=== PATIENT | female | born 1960 | race Caucasian/White ===

== ENCOUNTER 2018-11-08 17:41 | Inpatient (IN) | payer BC ==
[~2018-11-08] VITALS: Ht 154.9 cm; Wt 96.5 kg
[~2018-11-08 17:41] MED LIST: ALPR-624 PO; ASPI-1 PO; ATOR20TA66 PO; CLOP75TA35 PO; METO1TAB25 PO; OMEP-84 PO
[2018-11-08] MEDS ORDERED: aspirin 325mg tablet PO ONE (18:15)
[2018-11-08 18:50] LABS: BASOPHILS % (AUTO) 0.7 % (0-1); EOSINOPHILS # (AUTO) 0.2 X10'3 (0-0.9); EOSINOPHILS % (AUTO) 3.2 % (0-6); HEMATOCRIT 41.4 % (35.0-45.0); HEMOGLOBIN 13.7 g/dl (12.0-16.0); LYMPHOCYTES # (AUTO) 1.6 X10'3 (1.1-4.8); LYMPHOCYTES % (AUTO) 26.5 % (21-51); MEAN CORPUSCULAR HEMOGLOBIN 28.9 PG (27.0-31.0); MEAN CORPUSCULAR HGB CONC 33.1 g/dL (33.0-36.5); MEAN CORPUSCULAR VOLUME 87.2 FL (78-98); MEAN PLATELET VOLUME 7.7 FL (7.4-10.4); MONOCYTES # (AUTO) 0.6 X10'3 (0-0.9); MONOCYTES % (AUTO) 9.8 % (2-12); NEUTROPHILS # (AUTO) 3.7 X10'3 (1.8-7.7); NEUTROPHILS % (AUTO) 59.8 % (42-75); PLATELET COUNT 234 X10'3 (140-440); RED BLOOD COUNT 4.75 X10'6 (4.20-5.60); RED CELL DISTRIBUTION WIDTH 13.9 % (11.5-14.5); WHITE BLOOD COUNT 6.1 X10'3 (4.5-11.0)
[2018-11-08 19:00] LABS: PARTIAL THROMBOPLASTIN TIME 27 SECONDS (22-32)
[2018-11-08 19:10] LABS: ALANINE AMINOTRANSFERASE 36 U/L (12-78); ALBUMIN 3.2 G/DL (3.4-5.0); ALKALINE PHOSPHATASE 65 IU/L (46-116); ANION GAP 7 (8-16); ASPARTATE AMINO TRANSFERASE 26 U/L (10-37); BILIRUBIN,TOTAL 0.4 MG/DL (0.1-1.0); BLOOD UREA NITROGEN 11 MG/DL (7-18); BUN/CREATININE RATIO 12.8 (6.6-38.0); CALCIUM 8.7 MG/DL (8.5-10.1); CHLORIDE 107 MMOL/L (99-107); CREATININE 0.86 MG/DL (0.40-0.90); GLUCOSE 118 MG/DL (70-104); POTASSIUM 3.5 MMOL/L (3.5-5.1); SODIUM 143 MMOL/L (135-145); TOTAL CARBON DIOXIDE 28.7 MMOL/L (24-32); TOTAL PROTEIN 6.3 G/DL (6.4-8.2); eGFR 67 ML/MIN
[2018-11-08] MEDS ORDERED: enoxaparin 100mg/ml syringe SUBCUT ONE (19:20)
[2018-11-08] MEDS ORDERED: OMEP40CA37 PO (19:39)
[2018-11-08] MEDS ORDERED: CLOP75TA15 PO (19:39)
[2018-11-08] MEDS ORDERED: ATOR40TA PO (19:39)
[2018-11-08] MEDS ORDERED: METO50TA7 PO (19:39)
[2018-11-08] MEDS ORDERED: acetaminophen 325mg tablet PO PRN ×2 (20:25)
[2018-11-08] MEDS ORDERED: magnesium 4gm in 100ml NS 100 ML IV PRN (20:25)
[2018-11-08] MEDS ORDERED: magnesium Cl slow-release 64mg tablet PO PRN (20:25)
[2018-11-08] MEDS ORDERED: potassium Cl 40MEQ/NS 500ml 500 ML IV PRN ×2 (20:25)
[2018-11-08] MEDS ORDERED: nitroGLYCERIN 0.4mg SUBLingual tab SL PRN (20:25)
[2018-11-08] MEDS ORDERED: ondansetron/PF 4mg/2ml inj IV PRN (20:25)
[2018-11-08] MEDS ORDERED: mag hydrox/Alum hydrox/simeth 30ml oral suspension PO PRN (20:25)
[2018-11-08] MEDS ORDERED: potassium Cl 20 mEq SR tablet PO PRN ×2 (20:25)
[2018-11-08] MEDS ORDERED: magnesium hydroxide 30ml (MOM) UD suspension PO PRN (20:25)
[2018-11-08] MEDS ORDERED: magnesium 2GM in 50ml NS 50 ML IV PRN (20:25)
--- NOTE | 2018-11-08 21:15 | NUR ---
Report received from Artur FERGUSON in the ER on the pt.
--- NOTE | 2018-11-08 21:30 | NUR ---
Pt admitted to room 308. Placed on bedside monitor, VSS, and no s/s of distress. Pt denies any current or recent CP since this morning. Educated her that she will be NPO after midnight pending further tests. Chest pain protocol being done for pt. She denied other needs and stated understanding to her POC. Call light in reach.
[2018-11-08 22:00] VITALS: BP 147/75
[2018-11-09] VITALS (13 sets, daily range): BP systolic 119–197; BP diastolic 63–84
[2018-11-09] MEDS ORDERED: regadenoson 0.4mg/5ml syringe IV ONE (02:20)
[2018-11-09] MEDS ORDERED: aminophylline 250mg/10ml inj. IV PRN (02:20)
[2018-11-09] MEDS ORDERED: nitroGLYCERIN 0.4mg SUBLingual tab SL PRN (02:20)
[2018-11-09] MEDS ORDERED: metoprolol tartrate 1mg/ml inj IV PRN (02:20)
--- NOTE | 2018-11-09 06:36 | NUR ---
Patient in room MED 308. I have received report from Chantal FERGUSON and had the opportunity to ask questions and assume patient care.
[2018-11-09 07:00] LABS: BASOPHILS % (AUTO) 0.7 % (0-1); EOSINOPHILS # (AUTO) 0.2 X10'3 (0-0.9); EOSINOPHILS % (AUTO) 4.2 % (0-6); HEMATOCRIT 40.3 % (35.0-45.0); HEMOGLOBIN 13.4 g/dl (12.0-16.0); LYMPHOCYTES # (AUTO) 1.3 X10'3 (1.1-4.8); LYMPHOCYTES % (AUTO) 30.2 % (21-51); MEAN CORPUSCULAR HGB CONC 33.2 g/dL (33.0-36.5); MEAN CORPUSCULAR VOLUME 87.4 FL (78-98); MEAN PLATELET VOLUME 7.8 FL (7.4-10.4); MONOCYTES # (AUTO) 0.4 X10'3 (0-0.9); MONOCYTES % (AUTO) 8.2 % (2-12); NEUTROPHILS # (AUTO) 2.5 X10'3 (1.8-7.7); NEUTROPHILS % (AUTO) 56.7 % (42-75); PLATELET COUNT 207 X10'3 (140-440); RED BLOOD COUNT 4.61 X10'6 (4.20-5.60); WHITE BLOOD COUNT 4.5 X10'3 (4.5-11.0)
[2018-11-09 07:16] LABS: ANION GAP 8 (8-16); BLOOD UREA NITROGEN 13 MG/DL (7-18); BUN/CREATININE RATIO 15.5 (6.6-38.0); CALCIUM 8.9 MG/DL (8.5-10.1); CHLORIDE 108 MMOL/L (99-107); CREATININE 0.84 MG/DL (0.40-0.90); GLUCOSE 112 MG/DL (70-104); MAGNESIUM 1.8 MG/DL (1.5-2.4); POTASSIUM 3.6 MMOL/L (3.5-5.1); SODIUM 145 MMOL/L (135-145); TOTAL CARBON DIOXIDE 28.8 MMOL/L (24-32); eGFR 69 ML/MIN
--- NOTE | 2018-11-09 07:27 | NUR ---
Paged correctional maintenance technician for 12 hour EKG.
[2018-11-09] MEDS: pantoprazole 40mg Tablet.DR PO SCH (08:00)
[2018-11-09] MEDS ORDERED: enoxaparin 100mg/ml syringe SUBCUT SCH (08:00)
[2018-11-09] MEDS ORDERED: K and/or MAG REPLACEMENT MC SCH (08:00)
[2018-11-09] MEDS ORDERED: clopidogrel 75mg tablet PO SCH (08:00)
[2018-11-09] MEDS: ALPRAZolam 0.5mg tablet PO SCH (08:01)
[2018-11-09] MEDS: atorvastatin 20mg tablet PO SCH (08:01)
[2018-11-09] MEDS: metoprolol succinate 25mg (24-HOUR) SR. Tablet PO SCH (08:01)
[2018-11-09] MEDS ORDERED: aspirin 81mg tablet.DR PO SCH (08:45)
[2018-11-09] MEDS ORDERED: iohexol 350MG/ML 100ml bottle IV ONE ×4 (09:00→16:09)
[2018-11-09 09:19] LABS: D-DIMER 0.32 MG/L FEU (0-0.50)
--- NOTE | 2018-11-09 12:56 | NUR ---
Spoke with pt. regarding HTN (170's/70's), claims to run high at home 150's/70's. Consulted with Daly FERGUSON MD rounding soon and plans to inform him of HTN at that time. Addendum: 11/09/18 at 1258 by Bernadette WISEMAN-NU Amended: Links added.
--- NOTE | 2018-11-09 13:08 | NUR ---
Paged Dr Moore regarding patient's blood pressure and NPO status; PAGER ID: [phone] MESSAGE: Daly on [facility] at [phone] re Kristyn Hillman in 308. She is hypertensive, currently 170s/80s. Do you want to add a PRN? Also, does she still need to be NPO or will she have more tests today? Thanks
[2018-11-09] MEDS ORDERED: hydrALAZINE 20mg/ml inj. IV SCH (14:00)
[2018-11-09] MEDS ORDERED: hydrALAZINE 20mg/ml inj. IV PRN (14:20)
[2018-11-09] MEDS ORDERED: LIDOcaine 1% (10mg/ml)w/preservative injection 20ml MDV ONE (14:27)
[2018-11-09] MEDS ORDERED: nitroGLYCERIN-Tridil 50MG/D5W 250 ML IV ONE (14:27)
[2018-11-09] MEDS ORDERED: heparin 1,000unit/ml 10ml vial 10 ML ONE (14:27)
[2018-11-09] MEDS ORDERED: verapamil 2.5 mg/ml inj IV ONE (14:27)
[2018-11-09] MEDS ORDERED: iohexol 350 MG/ML 50ML vial IV ONE (14:48)
--- NOTE | 2018-11-09 15:02 | NUR ---
Patient picked up and taken to [facility].
[2018-11-09] MEDS ORDERED: midazolam 2 mg/2 ml injection ONE (15:11)
[2018-11-09] MEDS ORDERED: fentaNYL/PF 50MCG/1 ML 2ML syringe ONE ×2 (15:11→16:27)
[2018-11-09] MEDS ORDERED: heparin 25,000 UNIT/250ml bag 250 ML IV ONE (16:10)
[2018-11-09] MEDS ORDERED: clopidogrel 300mg tablet ONE (16:36)
[2018-11-09] MEDS ORDERED: hydrALAZINE 20mg/ml inj. IV ONE (16:48)
--- NOTE | 2018-11-09 17:00 | NUR ---
1700 Received report from Dorys in optical laboratory manager. Pt here at 1720 sheath site intact, transduced , patient alert and oriented, restless, c/o headache, denies chest pain. pulses palpable. Radial cuff in place from radial artery approach, site clear. 1740 received report from Daly in [facility] no new information received.
--- NOTE | 2018-11-09 17:38 | NUR ---
Problems reprioritized. Patient report given, questions answered & plan of care reviewed with David FERGUSON.
[2018-11-09] MEDS ORDERED: HYDROcodone/acetaminophen 10/325mg tab PO PRN ×2 (17:40)
[2018-11-09] MEDS ORDERED: proCHLORperazine 10 MG/2 ml inj IV PRN (17:40)
[2018-11-09] MEDS ORDERED: acetaminophen 325mg tablet PO PRN ×2 (17:40)
[2018-11-09] MEDS ORDERED: OXAZEpam 15mg capsule PO PRN (17:40)
[2018-11-09] MEDS ORDERED: cyclobenzaprine 10mg tablet PO PRN (17:40)
[2018-11-09] MEDS ORDERED: heparin 25,000 UNIT/250ml bag 250 ML IV PRN (17:45)
[2018-11-09] MEDS ORDERED: nitroGLYCERIN-Tridil 50MG/D5W 250 ML IV PRN (17:45)
[2018-11-09] MEDS ORDERED: aspirin 81mg tab.chew PO ONE (17:45)
--- NOTE | 2018-11-09 18:30 | NUR ---
Problems reprioritized. Patient report given, questions answered & plan of care reviewed with Joe.
[2018-11-09] MEDS: hydrALAZINE 20mg/ml inj. IV PRN ×2 (18:47→23:40)
--- NOTE | 2018-11-09 19:32 | NUR ---
Dr. Niño at bedside to assess patient. Patient currently nauseous and throwing up, having multiple complaints of headache, nausea. Informed Dr. Niño that SBP has been 180s-200s since beginning of my shift, hydralazine administered half hour ago. New orders received. Will continue to monitor patient closely. Will administer pain medication as ordered by .
[2018-11-09] MEDS ORDERED: lisinopril 10 MG tablet PO ONE ×2 (19:35→20:35)
[2018-11-09] MEDS: docusate sod 100mg capsule PO SCH (19:46)
[2018-11-09] MEDS: normal saline 1000ml 1,000 ML IV SCH (19:50)
[2018-11-09] MEDS ORDERED: magnesium hydroxide 30ml (MOM) UD suspension PO SCH (21:00)
--- NOTE | 2018-11-09 21:35 | NUR ---
ACT result 158. Sheath removed and manual pressure held for 20 minutes by ore charger Brian. Femstop placed. Pulse palpable to R dorsalis pedis. Educated patient regarding need to remain flat for 6 hours. Patient offering multiple complaints during procedure, including pain, being cold, being thirst, etc. Pain medication and anxiety medication administered for complaints, warm blankets placed on patient. Will continue to monitor site and patient closely.
[2018-11-09] MEDS ORDERED: morphine 2 MG/ML inj. syringe IV PRN (21:40)
[2018-11-10] VITALS (11 sets, daily range): BP systolic 98–138; BP diastolic 40–66
[2018-11-10] MEDS: normal saline 1000ml 1,000 ML IV SCH (02:25)
--- NOTE | 2018-11-10 02:45 | NUR ---
Patient's monitor alarm going off. Patient had pulled off all leads and blood pressure cuff. PIV pulled out, cannula intact. Patient alert/oriented x4, very angry and frustrated, demanding to know when fem-stop will come off. Explained to patient that it will come off at 3:30. Educated patient as to importance of leaving all wires on for monitoring. Patient stating "i'm sorry i've been yelling at you guys". Will continue to monitor patient.
[2018-11-10 06:08] LABS: ANION GAP 11 (8-16); BLOOD UREA NITROGEN 15 MG/DL (7-18); BUN/CREATININE RATIO 16.5 (6.6-38.0); CALCIUM 8.4 MG/DL (8.5-10.1); CHLORIDE 103 MMOL/L (99-107); CREATININE 0.91 MG/DL (0.40-0.90); GLUCOSE 105 MG/DL (70-104); MAGNESIUM 1.4 MG/DL (1.5-2.4); POTASSIUM 3.7 MMOL/L (3.5-5.1); SODIUM 137 MMOL/L (135-145); TOTAL CARBON DIOXIDE 22.7 MMOL/L (24-32); eGFR 63 ML/MIN
--- NOTE | 2018-11-10 06:30 | NUR ---
Patient in room CICU 2011. I have received report from MARTY Diaz and had the opportunity to ask questions and assume patient care.
[2018-11-10 06:37] LABS: BASOPHILS % (AUTO) 0.3 % (0-1); EOSINOPHILS % (AUTO) 0.2 % (0-6); HEMATOCRIT 40.5 % (35.0-45.0); HEMOGLOBIN 13.7 g/dl (12.0-16.0); LYMPHOCYTES # (AUTO) 1.7 X10'3 (1.1-4.8); LYMPHOCYTES % (AUTO) 17.8 % (21-51); MEAN CORPUSCULAR HEMOGLOBIN 29.7 PG (27.0-31.0); MEAN CORPUSCULAR HGB CONC 33.9 g/dL (33.0-36.5); MEAN CORPUSCULAR VOLUME 87.5 FL (78-98); MEAN PLATELET VOLUME 8.4 FL (7.4-10.4); MONOCYTES # (AUTO) 0.8 X10'3 (0-0.9); MONOCYTES % (AUTO) 8.6 % (2-12); NEUTROPHILS # (AUTO) 6.8 X10'3 (1.8-7.7); NEUTROPHILS % (AUTO) 73.1 % (42-75); PLATELET COUNT 181 X10'3 (140-440); RED BLOOD COUNT 4.63 X10'6 (4.20-5.60); RED CELL DISTRIBUTION WIDTH 14.2 % (11.5-14.5); WHITE BLOOD COUNT 9.3 X10'3 (4.5-11.0)
--- NOTE | 2018-11-10 06:45 | NUR ---
Problems reprioritized. Patient report given, questions answered & plan of care reviewed with Alvina FERGUSON.
[2018-11-10] MEDS: docusate sod 100mg capsule PO SCH (08:00)
[2018-11-10] MEDS ORDERED: lisinopril 20mg tablet PO SCH (08:00)
[2018-11-10] MEDS ORDERED: clopidogrel 75mg tablet PO SCH (08:00)
--- NOTE | 2018-11-10 08:12 | NUR ---
Pt. is repeatedly taking off blood pressure cuff and oxygen probe. I replace the cuff and probe each time and explain to pt. the importance of these items. Pt. is Alert and oriented to person, time, place, and knows why she is in the hospital. I will continue to educate patient.
[2018-11-10] MEDS ORDERED: aspirin 325mg tablet PO SCH (08:30)
[2018-11-10] MEDS: metoprolol succinate 25mg (24-HOUR) SR. Tablet PO SCH (10:54)
[2018-11-10] MEDS: pantoprazole 40mg Tablet.DR PO SCH (10:55)
[2018-11-10] MEDS: ALPRAZolam 0.5mg tablet PO SCH (10:55)
[2018-11-10] MEDS: atorvastatin 20mg tablet PO SCH (10:55)
[2018-11-10] MEDS ORDERED: LISI-600 PO (10:56)
[2018-11-10] MEDS ORDERED: NITR0.4T51 SL (10:56)
[2018-11-10] MEDS ORDERED: ASPI-611 PO (10:56)
[2018-11-10] MEDS ORDERED: nitroGLYCERIN-Tridil 50MG/D5W 250 ML IV PRN (17:45)
== END 2018-11-10 13:11 | disposition home or self-care (01) | DRG 247 ==
LOC: ER 17:41 → PCU 3S 20:27 → MED 3N 21:12 → CICU 2S 11-09 16:46
PROVIDERS: ADMIT Hospitalist; ATTEND Family Medicine
PROC: 027034Z Dilation of Coronary Artery, One Artery with Drug-eluting Intraluminal Device, Percutaneous Approach (ICD-10-PCS; principal; 2018-11-09)
PROC: B2111ZZ Fluoroscopy of Multiple Coronary Arteries using Low Osmolar Contrast (ICD-10-PCS; 2018-11-09)
PROC: B2151ZZ Fluoroscopy of Left Heart using Low Osmolar Contrast (ICD-10-PCS; 2018-11-09)
PROC: 4A023N7 Measurement of Cardiac Sampling and Pressure, Left Heart, Percutaneous Approach (ICD-10-PCS; 2018-11-09)
PROC: B3201ZZ Computerized Tomography (CT Scan) of Thoracic Aorta using Low Osmolar Contrast (ICD-10-PCS; 2018-11-09)
PROC: B32T1ZZ Computerized Tomography (CT Scan) of Left Pulmonary Artery using Low Osmolar Contrast (ICD-10-PCS; 2018-11-09)
PROC: B32S1ZZ Computerized Tomography (CT Scan) of Right Pulmonary Artery using Low Osmolar Contrast (ICD-10-PCS; 2018-11-09)
DX: I21.4 Non-ST elevation (NSTEMI) myocardial infarction (principal); Z68.41 Body mass index [BMI] 40.0-44.9, adult; I25.10 Atherosclerotic heart disease of native coronary artery without angina pectoris; I10 Essential (primary) hypertension; E78.5 Hyperlipidemia, unspecified; J44.9 Chronic obstructive pulmonary disease, unspecified; K21.9 Gastro-esophageal reflux disease without esophagitis; E66.01 Morbid (severe) obesity due to excess calories; F41.9 Anxiety disorder, unspecified; I25.2 Old myocardial infarction; Z87.891 Personal history of nicotine dependence; Z95.5 Presence of coronary angioplasty implant and graft; Z79.899 Other long term (current) drug therapy; Z79.82 Long term (current) use of aspirin; Z71.6 Tobacco abuse counseling
CPT/HCPCS: 93306; 93458; 96372; 99285; C9600; 36415; 71045; 71275; 80048; 80053; 83735; 84484; 85025; 85347; 85379; 85610; 85730; 87070; 93005; 93971; 99152; 99153; A4620; A6257; C1725; C1769; C1874; G0378; J0360; J1644; J1650; J2001; J2250; J2270; J2405; J3010; J3490; J7030; Q9967

== ENCOUNTER 2019-10-20 15:06 | Emergency (ER) | payer BC ==
[~2019-10-20] VITALS: Ht 160 cm; Wt 104.5 kg
[~2019-10-20 15:06] MED LIST changes: -ASPI-1 PO; -ATOR20TA66 PO; +ATOR40TA PO; +CLOP75TA15 PO; -CLOP75TA35 PO; +LISI-600 PO; -METO1TAB25 PO; +METO50TA7 PO; +NITR0.4T51 SL; -OMEP-84 PO; +OMEP40CA13 PO
[2019-10-20 15:55] LABS: BASOPHILS % (AUTO) 0.5 % (0-1); EOSINOPHILS # (AUTO) 0.2 X10'3 (0-0.9); EOSINOPHILS % (AUTO) 3.6 % (0-6); HEMATOCRIT 39.4 % (35.0-45.0); HEMOGLOBIN 13.1 g/dl (12.0-16.0); LYMPHOCYTES # (AUTO) 1.6 X10'3 (1.1-4.8); LYMPHOCYTES % (AUTO) 26.4 % (21-51); MEAN CORPUSCULAR HEMOGLOBIN 26.1 PG (27.0-31.0); MEAN CORPUSCULAR HGB CONC 33.2 g/dL (33.0-36.5); MEAN CORPUSCULAR VOLUME 78.6 FL (78-98); MEAN PLATELET VOLUME 7.5 FL (7.4-10.4); MONOCYTES # (AUTO) 0.7 X10'3 (0-0.9); NEUTROPHILS # (AUTO) 3.5 X10'3 (1.8-7.7); NEUTROPHILS % (AUTO) 58.5 % (42-75); PLATELET COUNT 298 X10'3 (140-440); RED BLOOD COUNT 5.01 X10'6 (4.20-5.60); RED CELL DISTRIBUTION WIDTH 16.1 % (11.5-14.5)
[2019-10-20 16:08] LABS: ALANINE AMINOTRANSFERASE 38 U/L (12-78); ALBUMIN 3.5 G/DL (3.4-5.0); ALBUMIN/GLOBULIN RATIO 0.9 (1.1-1.5); ALKALINE PHOSPHATASE 71 IU/L (46-116); ANION GAP 4 (8-16); ASPARTATE AMINO TRANSFERASE 27 U/L (10-37); BILIRUBIN,TOTAL 0.2 MG/DL (0.1-1.0); BLOOD UREA NITROGEN 13 MG/DL (7-18); BUN/CREATININE RATIO 12.6 (6.6-38.0); CALCIUM 9.1 MG/DL (8.5-10.1); CHLORIDE 105 MMOL/L (99-107); CREATININE 1.03 MG/DL (0.40-0.90); GLUCOSE 94 MG/DL (70-104); POTASSIUM 3.9 MMOL/L (3.5-5.1); SODIUM 141 MMOL/L (135-145); TOTAL CARBON DIOXIDE 32.1 MMOL/L (24-32); TOTAL PROTEIN 7.5 G/DL (6.4-8.2); eGFR 54 ML/MIN
[2019-10-20 17:25] VITALS: BP 136/76
--- NOTE | 2019-10-20 19:20 | NUR ---
superintendent geophysical laboratory to draw troponin, pt is not in lobby
== END 2019-10-20 22:01 | disposition left against medical advice (07) ==
LOC: ER 15:06
DX: R53.1 Weakness (principal); Z53.21 Procedure and treatment not carried out due to patient leaving prior to being seen by health care provider
CPT/HCPCS: 36415; 71045; 80053; 84484; 85025; 93005; 99285

== ENCOUNTER 2020-09-27 22:38 | Emergency (ER) | payer BC ==
[~2020-09-27] VITALS: Ht 162.6 cm; Wt 98.5 kg
[2020-09-27 22:44] VITALS: BP 151/70
== END 2020-09-27 23:21 | disposition home or self-care (01) ==
LOC: ER 22:38
DX: R25.2 Cramp and spasm (principal); I25.10 Atherosclerotic heart disease of native coronary artery without angina pectoris; I10 Essential (primary) hypertension; Z98.890 Other specified postprocedural states; Z79.899 Other long term (current) drug therapy
CPT/HCPCS: 99281

== ENCOUNTER 2023-12-26 17:29 | Emergency (ER) | payer BC, OTHER ==
[~2023-12-26] VITALS: Ht 160 cm; Wt 100.0 kg
[~2023-12-26 17:29] MED LIST changes: -LISI-600 PO; +LISI20TA28 PO; -OMEP40CA13 PO; +OMEP40CA21 PO
[2023-12-26 18:48] VITALS: BP 130/67; PULSE 87; RESP 16; TEMP 98.6; O2SAT 94
== END 2023-12-26 18:49 | disposition home or self-care (01) ==
LOC: ER 17:29
DX: Z04.3 Encounter for examination and observation following other accident (principal); W19.XXXA Unspecified fall, initial encounter; Y93.89 Activity, other specified; Y92.89 Other specified places as the place of occurrence of the external cause; Y99.8 Other external cause status
CPT/HCPCS: 99281